=== PATIENT | female | born 1970 | race Caucasian/White ===

== ENCOUNTER 2021-06-14 11:57 | Emergency (ER) | payer OTHER ==
[2021-06-14] MEDS ORDERED: Diphtheria,Pertussis(Acell),Tetanus Vaccine 0.5 ML Syringe IM ONE (12:10)
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
[2021-06-14 12:41] LABS: BLOOD UREA NITROGEN,BUN 16 mg/dL (7.0-18.0); CARBON DIOXIDE,CO2 26.3 mmol/L (21.0-32.0); CHLORIDE,CL 104 mmol/L (98-107); GLUCOSE RANDOM 127 mg/dL (74-106); LIPASE 113 U/L (73-393); POTASSIUM,K 3.9 mmol/L (3.5-5.1); SODIUM,NA 141 mmol/L (136-145)
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
[2021-06-14] MEDS ORDERED: EPINEPHrine/Lidocaine/Tetracai Topical Gel 3 ML TOP ONE (12:50)
== END 2021-06-14 14:16 | disposition home or self-care (01) ==
LOC: MW.ED 11:57
DX: S01.311A Laceration without foreign body of right ear, initial encounter (principal); Z23 Encounter for immunization; V49.10XA Passenger injured in collision with unspecified motor vehicles in nontraffic accident, initial encounter; Y92.410 Unspecified street and highway as the place of occurrence of the external cause
CPT/HCPCS: 12011; 36415; 70450; 70450-26; 72125; 72125-26; 80053; 81001; 83690; 85025; 90471; 90715; 99285-25